=== PATIENT | female | born 1985 | race American Indian/Alaskan Native ===

== ENCOUNTER 2024-06-22 23:36 | Inpatient (IN) | payer BC, MEDICAID, SELFPAY ==
[2024-06-22 23:43] VITALS: BMI 44.3
[2024-06-22 23:44] VITALS: TEMP 36.8
[2024-06-22 23:48] VITALS: BP 142/73; PULSE 81
[2024-06-22 23:49] VITALS: BP 142/73; PULSE 81; RESP 18; RESP 98; TEMP 36.8
[2024-06-23] VITALS (21 sets, daily range): BP systolic 107–137; BP diastolic 57–86; PULSE 74–93; RESP 12–98; TEMP 36.4–36.9; O2SAT 96–100
[2024-06-23 00:18] LABS: ROM Kit Lot # 578010224
[2024-06-23 00:19] LABS: ROM Swab Mixed By: DAVIH1; Rupture of Fetal Membranes Negative (Negative); Swb Mxed in Solvent 1 min? Yes
[2024-06-23] MEDS: metroNIDAZOLE 250 MG TABLET 500 MG PO (00:54)
[2024-06-23] MEDS: RINGERS LACTATED 1000 ML 1,000 ML 125 ML IV ×2 (02:15→06:40)
[2024-06-23 02:47] LABS: Basophils % (Auto) 0 % (0-2.5); Eosinophils # (Auto) 0.1 Thou/mm3 (0.0-0.5); Eosinophils % (Auto) 1 % (0-10); Hematocrit 40.2 % (36.0-46.0); Hemoglobin 13.9 g/dL (12.0-16.0); Immature Granulocytes % (Auto) 0 % (0-0); Immature Granulocytes Auto 0.05 Thou/mm3 (0.00-0.00); Lymphocytes % (Auto) 14 % (10-50); Mean Corpuscular HGB Conc 34.6 g/dl (31.0-37.0); Mean Corpuscular Hemoglobin 31.2 pg (25.0-35.0); Mean Corpuscular Volume 90 fL (80-100); Monocytes % (Auto) 7 % (0-12); Neutrophils # (Auto) 10.8 Thou/mm3 (1.8-7.7); Neutrophils % (Auto) 77 % (37-80); Nucleated Red Blood Cell % 0 /100 WBC (0); Platelet Count 272 Thou/mm3 (140-440); RDW Standard Deviation 42.4 fL (36.4-46.3); Red Blood Count 4.45 Miln/mm3 (4.00-5.20); White Blood Count 14.1 Thou/mm3 (3.6-11.0)
[2024-06-23 03:25] LABS: Syphilis Nonreactive (Nonreactive)
--- NOTE | 2024-06-23 06:02 | PD.LDHP ---
Documentation for date of: 06/23/24 OB Labor/Induct. HPI History of Present Illness Comments: H and P dictated on STAT line in [facility] [id number] History of Present Adequate Care: Yes Meds Home Medications and Allergies Home Medications ?Medication ?Instructions ?Recorded ?Confirmed ?Type [id number] fum 28 1 pkg PO QDAY 01/03/23 06/23/24 History mg-folic acid 800 mcg-dha 200 mg oral pack ( + DHA) Allergies Allergy/AdvReac Type Severity Reaction Status Date / Time No Known Allergies Allergy Verified 06/23/24 03:28 OB Exam Physical Exam Vital signs: Temp Pulse Resp BP 98.0 F 85 18 118/57 L 06/23/24 04:10 06/23/24 04:06 06/23/24 04:10 06/23/24 04:06 OB Results Labs 06/23/24 02:10 Labs: Short CBC 06/23/24 Range/Units 02:10 WBC 14.1 H (3.6-11.0) Thou/mm3 Hgb 13.9 (12.0-16.0) g/dL Hct 40.2 (36.0-46.0) % Plt Count 272 (140-440) Thou/mm3
[2024-06-23] MEDS: ceFAZolin/D5W 2 GM IV 2 GM/100 ML BAG IV (07:21)
[2024-06-23] MEDS: CITRIC ACID/SODIUM CITR 15 ML UDC (BICITRA) 30 ML PO (07:21)
[2024-06-23] MEDS: FAMOTIDINE INJ 10 MG/ML VIAL 2 ML 20 MG IV (07:21)
--- NOTE | 2024-06-23 08:54 | PD.LDDS ---
DS: Providers Provider Date of admission: 06/23/24 08:13 Primary care physician: Martin Beatty MD Admitting Provider: Martin Beatty MD Attending Provider on Admission: Martin Beatty MD Attending Provider on DC: Martin Beatty MD Discharging Provider: Martin Beatty MD DS: Diagnosis Problem List Completed Was Problem List Reviewed/Reconciled?: Yes Summary/Hosp Course Peripartum Data Procedures: Procedures Operation Date: 06/23/24 07:30 <No data on this case meets the specified criteria> Time Spent with Patient Time attestation: Total time spent providing and/or coordinating discharge services: Exam Vital Signs Temp Pulse Resp BP 98.0 F 89 18 132/64 H 06/23/24 04:10 06/23/24 06:57 06/23/24 04:10 06/23/24 06:57 Discharge Plan Plan Patient Disposition: HOME (Self Care) Patient condition on transfer: Stable Prescriptions/Referrals Prescriptions/Med Rec: New hydrocodone-acetaminophen 5-325 mg tablet 1 tab PO Q6H MDD 4 PRN (Reason: pain) Qty: 20 0RF hydrocodone-acetaminophen 5-325 mg tablet 1 tab PO Q6H MDD 4 PRN (Reason: pain) Qty: 20 0RF ibuprofen 600 mg tablet 600 mg PO Q6H PRN (Reason: pain) Qty: 30 0RF Continued + DHA 28 mg iron-800 mcg-200 mg combo pack 1 pkg PO QDAY Patient Comments: Take 1 tablet by mouth once a day Discontinued ibuprofen 600 mg tablet 600 mg PO Q6H PRN (Reason: pain) Qty: 20 0RF hydrocodone-acetaminophen 5-325 mg tablet 1 tab PO Q6H MDD 4 PRN (Reason: pain) Qty: 20 0RF Referrals: Martin Beatty MD [Physician] - Patient/Caregiver Discharge Instructions Discharge Activity: activity as tolerated Other Discharge Activity Instructions:: Follow up office 1 week. Education Materials: C Section Dc Print Language: [place] Stand Alone Forms: Jessica Award Info., Patient Portal Info Letter Discharge Order Discharge Orders: Discharge (Routine); Ordered 06/25/24 Ordered By: Martin Beatty Planned Discharge Date 06/25/24
[2024-06-23] MEDS: ACETAMINOPHEN IVPB 1,000 MG/100 ML VIAL 250 MG IV (11:12)
[2024-06-23] MEDS: IBUPROFEN TAB 400 MG TABLET 800 MG PO ×2 (13:24→21:31)
[2024-06-23] MEDS: HYDROcodone/APAP 5/325 TABLET 1 TAB PO ×2 (13:24→17:22)
[2024-06-23 13:31] LABS: Basophils % (Auto) 0 % (0-2.5); Eosinophils % (Auto) 0 % (0-10); Hematocrit 40.2 % (36.0-46.0); Immature Granulocytes % (Auto) 0 % (0-0); Immature Granulocytes Auto 0.06 Thou/mm3 (0.00-0.00); Lymphocytes # (Auto) 0.7 Thou/mm3 (1.0-4.8); Lymphocytes % (Auto) 3 % (10-50); Mean Corpuscular HGB Conc 34.8 g/dl (31.0-37.0); Mean Corpuscular Hemoglobin 31.2 pg (25.0-35.0); Mean Corpuscular Volume 90 fL (80-100); Monocytes # (Auto) 0.2 Thou/mm3 (0.0-0.8); Monocytes % (Auto) 1 % (0-12); Neutrophils # (Auto) 18.6 Thou/mm3 (1.8-7.7); Neutrophils % (Auto) 95 % (37-80); Nucleated Red Blood Cell % 0 /100 WBC (0); Platelet Count 275 Thou/mm3 (140-440); RDW Standard Deviation 41.9 fL (36.4-46.3); Red Blood Count 4.49 Miln/mm3 (4.00-5.20); White Blood Count 19.6 Thou/mm3 (3.6-11.0)
[2024-06-23] MEDS: OXYTOCIN in NS 20 units 20 UNIT/1,000 ML BAG 125 UNIT IV (15:26)
--- NOTE | 2024-06-23 16:41 | PC.NURSE ---
Patient dangled at bedside with minimal assistance, was able to sit on the side of the bed with no issue, pericare done in bed. pad change done
[2024-06-24] MEDS: HYDROcodone/APAP 5/325 TABLET 1 TAB PO ×2 (03:18→16:41)
[2024-06-24 03:46] VITALS: BP 110/69; PULSE 73; RESP 18; TEMP 36.6; O2SAT 95
--- NOTE | 2024-06-24 07:13 | ESPR_ITS ---
RE: CATA URBINA : 1985 DATE OF SERVICE: 06/24/2024 SUBJECTIVE: Postop day #1, patient denies any problems or complaints. She is voiding. She is ambulating. She is tolerating diet. She is passing flatus. She denies any excessive vaginal bleeding. She denies any dizziness or lightheadedness. She denies any chest pain, palpitations, shortness of breath or lower extremity pain. OBJECTIVE: Vital Signs: Blood pressure 110/69, heart rate 73, respirations 18, temperature is 97.8, and pulse oximetry is 95% on room air. Lungs: Clear to auscultation bilaterally. Heart: Regular rate and rhythm. Abdomen: Fundus is firm. Dressing is dry and intact. Extremities: Nontender. LABORATORY DATA: Hemoglobin predelivery is 13.9, postdelivery is 14.0. ASSESSMENT: day #1, status post delivery and bilateral tubal salpingectomy. PLAN: Remove dressing, DC IV, support, encourage ambulation, possible discharge home tomorrow. DT: 06:59:40 TT: 07:12:00 Ref: [id number] - TID: [id number]
--- NOTE | 2024-06-24 07:23 | ESHP_ITS ---
RE: CATA URBINA : 1985 DATE OF ADMISSION: 06/23/2024 HISTORY OF PRESENT ILLNESS: This is a 38-year-old gravity 5 para 3-0-1-3 with due date of 07/08 with intrauterine at 37 weeks and 6 days. She presents to labor and delivery complaining of contractions and is noted to make cervical change indicating early labor. The patient's previous delivery was complicated by her shoulder dystocia and she elects to undergo a delivery to avoid the risk of a repeat shoulder dystocia. ALLERGIES: NO KNOWN DRUG ALLERGIES. MEDICATIONS: multivitamin 1 tablet p.o. daily. PAST MEDICAL HISTORY: Cervical dysplasia, hemorrhage, blood transfusion, shoulder dystocia, short interpregnancy interval, Klebsiella pneumoniae, UTI, family history of ovarian cancer, diabetes. OBSTETRIC HISTORY: 2002, 8-week spontaneous AB, no D and C. 2004, 37-week normal vaginal delivery, 7 pounds 2 ounce female. 05/2011, 38 weeks, normal vaginal delivery, 7 pounds, 12 ounce male. 02/2023, 40 week, normal vaginal delivery, 8 pound 9 ounce male complicated by shoulder dystocia. PAST SURGICAL HISTORY: Placement of Bakri intrauterine balloon due to hemorrhage in 02/2023 and leap cone biopsy of the cervix. REVIEW OF SYSTEMS: She denies any chest pain, palpitations, cough, fever, shortness of breath, or lower extremity pain. PHYSICAL EXAMINATION: Vital Signs: Blood pressure 120/72, heart rate 88, respirations 18, temperature 98.6. HEENT: Oropharynx and sclerae are clear. Lungs: Clear to auscultation bilaterally. Heart: Regular rate and rhythm. Abdomen: Gravid term size. Extremities: Nontender. Skin: No gross rashes or lesion. Neurologic: No focal deficits. ASSESSMENT AND PLAN: Intermittent at 37 weeks and 6 days, labor, previous shoulder dystocia, elects delivery, multiparity, desires voluntary sterilization. PLAN: delivery and bilateral tubal ligation. Informed consent was obtained. The patient was made aware of the risks, complications, alternatives, and benefits of the proposed procedure and she agrees. She is aware of the failure rate and increased risk of tubal ectopic gestation if occurs. She is aware that vasectomy has a lower failure rate. DT: 05:59:25 TT: 06:43:00 Ref: [id number] - TID: [id number]
[2024-06-24 08:20] VITALS: BP 117/74; PULSE 73; RESP 17; TEMP 36.7; O2SAT 96
[2024-06-24] MEDS: DOCUSATE SOD 100 MG CAPSULE PO (08:29)
[2024-06-24] MEDS: HYDROcodone/APAP 5/325 TABLET 2 TAB PO ×2 (08:29→21:09)
[2024-06-24] MEDS: ENOXAPARIN SOD INJ 40 MG/0.4 ML SYRINGE SC (08:29)
--- NOTE | 2024-06-24 08:35 | PD.LDDELS ---
Data ([facility]) Data : 5 Para: 3 Term: 3 : 0 : 1 Delivery Data ([facility]) Labor Data ROM Date: 06/23/24 ROM Time: 08:12 Rupture Type: AROM Amniotic Fluid: Clear Delivery Data EDC: 07/08/24 EDC calculated by:: LMP/early US confirmation Labor Onset Stage 1 Date: 06/23/24 Labor Onset Stage 1 Time: 08:12 Labor Onset Stage 2 Date: 06/23/24 Labor Onset Stage 2 Time: 08:12 Delivery Date: 06/23/24 Delivery Time: 08:13 Gestational age (weeks): 37 Gestational age (days): 6 Placenta Delivery Date: 06/23/24 Placenta Delivery Time: 08:14 Delivered by: Martin Beatty Delivery nurse: Genny Wolff Other staff at delivery: Nursery Nurse Other staff at delivery: Anesthesiologist Other staff at delivery: Drill Punch Operator Other staff at delivery: Other staff at delivery: Virginia Swanson Other staff at delivery: Arvind Amezcua Other staff at delivery: NICHOLAS Reddy Other staff at delivery: JUWAN Delivery Method Delivery: Delivery Type: Primary Presentation: Vertex Position: OP Anesthesia Type Primary Anesthesia: Spinal Placenta Placenta Delivery: Manual Placenta Cultures Obtained: No Placenta Sent for Examination: No Cord Sample: Cord Blood Obtained EBL Estimated blood loss (ml): 600 Umbilical Cord Nuchal Cord: None Additional Procedures Bilateral Salpingectomy Complications Complications: None [place] Data ([facility]) Data Infant Gender: Male Weight Grams: 3510 1 Minute Total: 9 5 Minute Total: 9
[2024-06-24] MEDS: SIMETHICONE 80 MG CHEW PO (11:23)
[2024-06-24] MEDS: IBUPROFEN TAB 400 MG TABLET 800 MG PO ×2 (11:23→19:52)
[2024-06-24 12:40] VITALS: BP 138/79; PULSE 82; RESP 18; TEMP 37; O2SAT 97
[2024-06-24 20:00] VITALS: BP 109/61; PULSE 90; RESP 18; RESP 95; TEMP 36.8; O2SAT 95
[2024-06-25] VITALS: BP 117/72; PULSE 87; RESP 18; TEMP 37; O2SAT 96
[2024-06-25] MEDS: IBUPROFEN TAB 400 MG TABLET 800 MG PO (04:00)
[2024-06-25 04:04] VITALS: BP 112/74; PULSE 83; RESP 18; TEMP 36.8; O2SAT 96
[2024-06-25] MEDS: HYDROcodone/APAP 5/325 TABLET 2 TAB PO (06:36)
--- NOTE | 2024-06-25 07:17 | ESOP_ITS ---
RE: CATA URBINA : 1985 DATE OF OPERATION: 06/23/2024 PREOPERATIVE DIAGNOSES: 1. Intrauterine at 37 weeks and 6 days. 2. Early labor. 3. Previous delivery complicated by shoulder dystocia. Elects delivery. 5. Multiparity. 6. Desires voluntary sterilization. POSTOPERATIVE DIAGNOSES: 1. Intrauterine at 37 weeks and 6 days. 2. Early labor. 3. Previous delivery complicated by shoulder dystocia. Elects delivery. 5. Multiparity. 6. Desires voluntary sterilization. PROCEDURE PERFORMED: Primary low transverse section via Pfannenstiel skin incision and bilateral salpingectomy. SURGEON: Martin Beatty DO MAILING MACHINE OPERATOR: YAHIR Lovell ANESTHESIA: Spinal. ANESTHESIOLOGIST: Arvind Lennon CRNA ESTIMATED BLOOD LOSS: 600 mL COMPLICATIONS: Uterine atony. FINDINGS: A live male , cephalic presentation, occiput posterior, clear amniotic fluid. 9/9. Placenta removed completely intact. Uterus initially atonic but responded to uterotonics. There was no evidence of endometriosis or pelvic adhesions. DESCRIPTION OF PROCEDURE: After proper informed consent was obtained and the patient was made aware of the risks, complications, alternatives, and benefits of the proposed procedure, she was taken to the operating room where she underwent induction of spinal anesthesia. She was placed in the dorsal supine position with leftward tilt. She was prepped and draped in the usual sterile fashion. A timeout was performed and a Pfannenstiel skin incision was made with the scalpel carried through to the underlying layer of fascia with the Bovie. The fascia was nicked in the midline. The incision was extended bilaterally with the Bovie. The inferior aspect of the fascial incision was grasped with Carlos Alberto clamps and elevated. The underlying rectus muscle was dissected off with the Bovie. The rectus muscles were in the midline. The peritoneum was identified between two Angela clamps and entered sharply with the Metzenbaum scissors. The incision was extended superiorly and inferiorly with good visualization of the bladder. The bladder blade was then inserted. Vesicouterine peritoneum was incised transversely and bladder flap was created digitally. The bladder blade was reinserted. The lower uterine segment was incised in a transverse fashion with scalpel. The incision was extended bilaterally digitally. The 's head was delivered. The mouth and nose were suctioned with the bulb suction. Shoulder and body delivered atraumatically. The cord was clamped and cut. The infant was sent off to the waiting pediatric staff. Cord blood and gases were sent. Placenta was then removed manually. The uterus was exteriorized and cleared of all clots and debris and the uterus incision was repaired with #1-0 chromic catgut suture in a running locking fashion. A second layer of the same suture was used to imbricate the first layer and obtained excellent hemostasis. The right fallopian tube was grasped at the fimbriated end with the Pepin clamps and using the NCLX 1 large jaw, a right salpingectomy was performed and specimen sent to Pathology. Attention was then turned to the left fallopian tube, which was grasped at the fimbriated end using the Pepin clamp and using the NCLX1 large jaw, the left salpingectomy was performed. Hemostasis was achieved on both adnexa. The lower uterine segment was hemostatic and the bladder flap was closed with 2-0 chromic catgut suture in a running fashion. The uterus was returned to the abdomen. The fundus was firm. The gutters were cleared of all clots and debris and the peritoneum was closed with 0 chromic catgut suture in a running fashion. The muscle was closed with 0 chromic catgut suture in a running fashion. The fascia was closed with 0 Vicryl beginning at each angle ending in center in running fashion. Subcutaneous tissue was irrigated with normal saline solution, found to be hemostatic, closed with 2-0 chromic catgut suture in a running fashion. The skin was closed with 4-0 Monocryl. A Dermabond Prineo dressing was applied. A sterile pressure dressing was applied. She tolerated the procedure well. Counts were correct. I discussed with the patient the nature of her condition, intraoperative findings, expectation for recovery. All questions were answered. DT: 08:59:06 TT: 09:40:00 Ref: [id number] - TID: [id number]
--- NOTE | 2024-06-25 07:28 | PD.LDPPPRG ---
Subjective Subjective Interval history: Patient denies any problem or complaint Exam Vital Signs Temp Pulse Resp BP Pulse Ox O2 Del Method 98.3 F 83 18 112/74 96 Room Air 06/25/24 04:04 06/25/24 04:04 06/25/24 04:04 06/25/24 04:04 06/25/24 04:04 06/25/24 04:04 Routine Respiratory Exam Comments: Clear to auscultation bilaterally Routine Cardiovascular Exam Comments: Regular rate and rhythm Routine Abdominal Exam Comments: Incision clean and intact nondistended Routine Extremities Exam Comments: Nontender Objective Labs 06/23/24 12:50 Assessment & Plan Assessment Comment Assessment comment: Postop day #2 status post delivery and bilateral salpingectomy Plan Comment Plan Comment: Discharge home Discharge instructions given Follow the follow-up in the office in 1 week Time Spent With Patient Time: Total time spent is greater than 50% in coordination of care (as documented) at patient's floor/unit and/or counseling patient:
[2024-06-25 07:35] VITALS: BP 119/80; PULSE 85; RESP 18; TEMP 36.7; O2SAT 97
[2024-06-25] MEDS: ENOXAPARIN SOD INJ 40 MG/0.4 ML SYRINGE SC (09:53)
[2024-06-25] MEDS: DOCUSATE SOD 100 MG CAPSULE PO (09:53)
== END 2024-06-25 12:50 | disposition home or self-care (01) | DRG 785 ==
LOC: S4SX 06-23 08:20 → S4NX 06-23 08:27
PROVIDERS: Admitting Provider Specialist; Visit Provider Specialist
PROC: 0UL70ZZ Occlusion of Bilateral Fallopian Tubes, Open Approach (ICD-10-PCS; CPT 59514; principal; 2024-06-23 07:15)
DX: O62.2 Other uterine inertia (principal); Z37.0 Single live birth; Z3A.37 37 weeks gestation of pregnancy; Z30.2 Encounter for sterilization; Z87.440 Personal history of urinary (tract) infections
CPT/HCPCS: 36415; 59409; 59899; 84112; 85025; 86780; 86850; 86900; 86901; 86923; 94762; A4649; J0131; J0689; J1100; J1650; J2210; J2250; J2274; J2371; J2405; J2590; J3010; J3490; J7030; J7120; S0191; A9270; J2270

== ENCOUNTER → 2024-11-27 | Outpatient (CLI) | payer BC, MEDICAID, SELFPAY ==
--- NOTE | 2024-11-27 15:00 | XR_ITS ---
Examination: Abdomen sonogram, complete Date and time of exam: November 27, 2024 1528 hours INDICATIONS: Elevated liver function tests on laboratory examination performed 4 months ago. Technique: Multiple real-time grayscale transabdominal sonographic images of the abdomen have been obtained. Findings: Normal gallbladder. Normal common bile duct 0.2 cm Pancreatic head 2.6 cm Aorta not enlarged. Liver normal size fatty infiltration no focal liver lesions Normal hepatopedal portal venous flow Patent IVC Right kidney 12.1 cm cortex 1.7 cm Left kidney 11.6 cm renal cortex 1.1 cm Mild renal scar formation Spleen 11.2 cm IMPRESSION: Normal gallbladder Liver normal size fatty infiltration no focal liver lesions
== END | disposition home or self-care (01) ==
PROVIDERS: PCP Nurse Practitioner Family; Referring Provider Nurse Practitioner Family; Visit Provider Nurse Practitioner Family
DX: K76.0 Fatty (change of) liver, not elsewhere classified (principal)
CPT/HCPCS: 76700